=== PATIENT | female | born 1935 | race Caucasian/White ===

== ENCOUNTER 2017-09-18 09:07 | Emergency (ER) | payer OTHER ==
[~2017-09-18] VITALS: Ht 165.1 cm; Wt 68.0 kg
[2017-09-18 09:07] VITALS: BP 66/31
== END 2017-09-18 13:06 | disposition expired ==
LOC: MED 09:07
DX: I46.9 Cardiac arrest, cause unspecified (principal); Z88.2 Allergy status to sulfonamides
CPT/HCPCS: 99285; 99291